=== PATIENT | male | born 1950 | race Caucasian/White ===

== ENCOUNTER 2021-06-28 06:20 | Day surgery (SDC) | payer MEDICARE, OTHER ==
[~2021-06-28] VITALS: Ht 172.7 cm; Wt 80.7 kg
[~2021-06-28 06:20] MED LIST: CANDICIDAL CAP1 EACH PO; CINNAMON500 MG PO; HYDROCHLOROTHIA25 MG PO; K-TAB ER20 MEQ PO; LIPITOR10 MG PO; NORVASC10 MG PO; PEPCID40 MG PO; TOPROL XL100 MG PO; VITAMIN D325 MCG
--- NOTE | 2021-06-28 08:25 | NUR ---
06/28/21 0825 Kamilla Rangel 0820-PATIENT ARRIVED TO PACU ON 2L NC RR EVEN. PATIENT LAYING SUPINE DROWSY EYES OPEN DENIES PAIN OR NAUSEA. IVF INFUSING. ABDOMEN SOFT.
--- NOTE | 2021-06-28 10:49 | OR ---
[facility] [address], [place] [address] Signed DATE OF OPERATION: 06/28/2021 SURGEON: Darling Tello MD PREOPERATIVE DIAGNOSES: 1. Gastroesophageal reflux disease. 2. Daily alcohol use. 3. Personal history of colonic polyps back to 2010 (age 60). 4. External anal skin tags. 5. Hemorrhoids. POSTOPERATIVE DIAGNOSES: 1. Mild to moderate gastroduodenitis. 2. Small hiatal hernia (39-37 cm). 3. 4 mm polyp at 8 cm. 4. 4 mm polyp at 20 cm/rectosigmoid junction. 5. 4 mm polyp at 25 cm. 6. 7 mm polyp at hepatic flexure. 7. 4 mm polyp at 18 cm. 8. 3 mm polyp at 4 cm. 9. Minimal to moderate internal and external hemorrhoids. 10. Minimal to moderate single anal skin tag. PROCEDURES: 1. Esophagogastroduodenoscopy with CLOtest and biopsies of the pyloric bulb, antrum and GE junction. 2. Colonoscopy with hot biopsy. ESTIMATED BLOOD LOSS: None. INDICATIONS: Yandy is a 70-year-old gentleman asked to see me for a followup endoscopy. He remembers upper endoscopy with Dr. Luis E Leger back in his 40s. He said he has done very well on his Protonix. If he goes to Pepcid, it is not enough to control his symptoms. In addition, he had an initial screening colonoscopy in 2010 at age 60. We found hyperplastic polyps, serrated adenomatous polyps and tubular adenomatous polyps. He returned at age 65 in 2015 for a repeat colonoscopy. We found an external anal skin tag along with internal hemorrhoids. He also had hyperplastic polyps and tubular adenomatous polyps. He has always done well with Versed and fentanyl. He currently has Electronically Signed By: DARLING TELLO MD 06/28/21 1049 PATIENT NAME: YANDY JONES OPERATIVE REPORT DATE OF : 54 REPORT #: [id number] PHYSICIAN: DARLING TELLO MD PCP: LUIS CHOWDARY MD REPORT IS CONFIDENTIAL AND NOT TO BE RELEASED WITHOUT AUTHORIZATION [facility] [address], [place] [address] Signed no lower GI complaints other than some of the hemorrhoids. He told me his father lived to be age 96 and his mother lived to be age 87. Yandy continues to be very active and has good functional status with excellent muscle mass. He told me there is no family history of colon cancer or polyps. In the office, I gave him a pamphlet on both upper and lower endoscopy. We had reviewed those two tests together. He understands there is risk including, but not limited to gas bloating, crampy abdominal pain, bleeding, perforation requiring surgery, and missed diagnosis. He had expressed understanding and wished to proceed. PROCEDURE NOTE: Yandy was taken into our endoscopy suite and placed in the supine semi-recumbent position. He was given a total of 6 mg of Versed and 150 mcg of fentanyl to cover the case. The posterior oropharynx was anesthetized with lidocaine spray. A bite block was utilized for the upper endoscopy. The adult gastroscope was introduced and advanced under direct visualization of camera without difficulty. The duodenum was unremarkable. The pyloric channel showed some mild inflammatory changes. He also had mild diffuse erythematous changes in the stomach. We went ahead and took biopsies of the pyloric bulb and antrum for pathologic review. In addition, a biopsy came out of the antrum for CLOtest. There were no ulcerations. Upon retroflexion of scope, we really cannot appreciate any significant sized hiatal hernia. He seems to have a small hiatal hernia about 39 back to 37 cm. He has mild disruption to the Z-line. We went ahead and took a biopsy along this area. There was no Schmid's mucosa. There was no distal esophagitis. The middle and upper esophagus were unremarkable. After this, the gas was suctioned out and the gastroscope removed. Yandy tolerated the procedure quite well. Yandy was then rotated into the left lateral decubitus position. He was maintained on IV sedation with Versed and fentanyl. A digital rectal exam was performed and we could see external hemorrhoids along with the skin tag. He has good sphincter tone. His prostate is moderately large, moderately indurated, a little more full on the left than the right. After this, the adult colonoscope was introduced, advanced all around into the cecum under direct visualization of camera without difficulty. His prep was quite good despite the fact that he had breakfast and ate a turkey sandwich yesterday. We could easily see the appendiceal orifice and ileocecal valve. The scope was then slowly withdrawn. The above-mentioned polyps were removed with the help of hot biopsy forceps. He has no diverticula. Once in the rectum, the scope was retroflexed and he does have minimal to moderate internal hemorrhoid columns. After this, the gas was suctioned out and the colonoscope removed. Yandy tolerated the procedure quite well. RECOMMENDATIONS: I will see Yandy back in my office in 7 to 14 days to review his results. I suspect he will stay on the 5-year plan. Electronically Signed By: DARLING TELLO MD 06/28/21 1049 PATIENT NAME: YANDY JONES OPERATIVE REPORT DATE OF : 54 REPORT #: [id number] PHYSICIAN: DARLING TELLO MD PCP: LUIS CHOWDARY MD REPORT IS CONFIDENTIAL AND NOT TO BE RELEASED WITHOUT AUTHORIZATION [address] [place] [place] [address] Signed Darling Tello MD [facility]/MODL /[id number] cc: MD Darling Regan MD Copies: LUIS CHOWDARY MD, ANDREW L MD ~ Electronically Signed By: DARLING TELLO MD 06/28/21 1049 PATIENT NAME: YANDY JONES OPERATIVE REPORT DATE OF : 54 REPORT #: [id number] PHYSICIAN: DARLING TELLO MD PCP: LUIS CHOWDARY MD REPORT IS CONFIDENTIAL AND NOT TO BE RELEASED WITHOUT AUTHORIZATION
--- NOTE | 2021-06-29 12:42 | PATH ---
[facility] [address], [place] [address] Signed SPECIMEN(S): A PYLORIC BULB BIOPSY SPECIMEN(S): B ANTRUM/PYLORUS BIOPSY SPECIMEN(S): C GE JUNCTION BIOPSY SPECIMEN(S): D RECTAL POLYP AT 8 CM SPECIMEN(S): E POLYP AT 20 CM SPECIMEN(S): F SIGMOID POLYP AT 25 CM SPECIMEN(S): G HEPATIC FLEXURE POLYP SPECIMEN(S): H RECTAL POLYP AT 18 CM SPECIMEN(S): I POLYP AT 4 CM SPECIMEN SOURCE: A. PYLORIC BULB BIOPSY B. ANTRUM/PYLORUS BIOPSY C. GE JUNCTION BIOPSY D. RECTAL POLYP AT 8 CM E. POLYP AT 20 CM F. SIGMOID POLYP AT 25 CM G. HEPATIC FLEXURE POLYP H. RECTAL POLYP AT 18 CM I. POLYP AT 4 CM CLINICAL HISTORY: GERD, personal history of colon polyps, hemorrhoids, anal skin tags. Postop Dx: Gastritis, small hiatal hernia, colorectal polyps, internal/external hemorrhoids, anal skin tag. MICROSCOPIC DESCRIPTION: Histologic sections of all submitted blocks are examined by light microscopy. These findings, together with the gross examination, support the pathologic diagnosis. FINAL PATHOLOGIC DIAGNOSIS: A. Pyloric bulb, biopsy: - Small bowel mucosa with no significant pathologic changes. B. Stomach, antrum/pylorus, biopsy: - Gastric antral mucosa with no significant pathologic changes. - Negative for Helicobacter pylori with HE stains. C. Gastroesophageal junction, biopsy: - Esophageal squamous mucosa with no significant pathologic changes. D. Rectum, 8 cm, polypectomy: - Colonic mucosa with no significant pathologic changes. E. Colon, 20 cm, polypectomy: PATIENT NAME: YANDY JONES PATHOLOGY DATE OF : 54 REPORT #: [id number] PHYSICIAN: MONIKA PATHOLOGY PCP: LUIS CHOWDARY MD REPORT IS CONFIDENTIAL AND NOT TO BE RELEASED WITHOUT AUTHORIZATION [facility] [address], [place] [address] Signed - Hyperplastic polyp. F. Sigmoid, 25 cm, polypectomy: - Colonic mucosa with no significant pathologic changes. G. Colon, hepatic flexure, polypectomy: - Tubular adenoma. H. Rectum, 18 cm, polypectomy: - Hyperplastic polyp. I. Colon, 4 cm, polypectomy: - Hyperplastic polyp. BRP:mfr:C2NR GROSS DESCRIPTION: Nine specimens are received in nine containers, labeled "MR." A. The specimen, labeled "MR, 1," and designated on the requisition "pyloric bulb," is received in formalin and consists of one ayala soft tissue fragment that measures 0.3 cm in greatest dimension. The specimen is entirely submitted in cassette (A1). B. The specimen, labeled "MR, 2," and designated on the requisition "antrum/pylorus," is received in formalin and consists of one ayala soft tissue fragment that measures 0.5 cm in greatest dimension. The specimen is entirely submitted in cassette (B1). C. The specimen, labeled "MR, 3," and designated on the requisition "GE junction," is received in formalin and consists of one ayala soft tissue fragment that measures 0.3 cm in greatest dimension. The specimen is entirely submitted in cassette (C1). D. The specimen, labeled "MR, 4," and designated on the requisition "rectal polyp at 8 cm," is received in formalin and consists of two ayala soft tissue fragments that measure 0.3 cm in greatest dimension. The specimen is entirely submitted in cassette (D1). E. The specimen, labeled "MR, 5," and designated on the requisition "polyp at 20 cm," is received in formalin and consists of one ayala soft tissue fragment that measures 0.3 cm in greatest dimension. The specimen is entirely submitted in cassette (E1). F. The specimen, labeled "MR, 6," and designated on the requisition "sigmoid polyp at 25 cm," is received in formalin and consists of one ayala soft tissue fragment that measures 0.3 cm in greatest dimension. The specimen is entirely submitted in cassette (F1). G. The specimen, labeled "MR, 7," and designated on the requisition "hepatic flexure," is received in formalin and consists of three ayala soft tissue fragments that measure 0.3 cm in greatest PATIENT NAME: YANDY JONES PATHOLOGY DATE OF : 54 REPORT #: [id number] PHYSICIAN: MONIKA PATHOLOGY PCP: LUIS CHOWDARY MD REPORT IS CONFIDENTIAL AND NOT TO BE RELEASED WITHOUT AUTHORIZATION [facility] [address] [place] [id number] Signed dimension. The specimen is entirely submitted in cassette (G1). H. The specimen, labeled "MR, 8," and designated on the requisition "rectal polyp at 18 cm," is received in formalin and consists of one ayala soft tissue fragment that measures 0.3 cm in greatest dimension. The specimen is entirely submitted in cassette (H1). I. The specimen, labeled "MR, 9," and designated on the requisition "polyp at 4 cm," is received in formalin and consists of one ayala soft tissue fragment that measures 0.3 cm in greatest dimension. The specimen is entirely submitted in cassette (I1). AT (under the direct supervision of a pathologist) The Gross Description was prepared using a voice recognition system. The report was reviewed for accuracy; however, sound-alike word errors, addition and/or deletions may occur. If there is any question about this report, please contact Client Services. PERFORMING LABORATORY: The technical component was [place] [address] ([employer]: Allegra Melgoza MD; CLIA# [id number]). Professional interpretation was performed [place] [address] (CLIA# [id number]). Diagnostician: Parag Raman MD Pathologist Electronically Signed 06/29/2021 Copies: ~ PATIENT NAME: YANDY JONES PATHOLOGY DATE OF : 54 REPORT #: [id number] PHYSICIAN: MONIKA GUAJARDO PCP: LUIS CHOWDARY MD REPORT IS CONFIDENTIAL AND NOT TO BE RELEASED WITHOUT AUTHORIZATION
== END 2021-06-28 09:05 | disposition home or self-care (01) ==
LOC: DS 06:20
PROVIDERS: ATTEND Colon & Rectal Surgery
PROC: 0DBN8ZX Excision of Sigmoid Colon, Via Natural or Artificial Opening Endoscopic, Diagnostic (ICD-10-PCS; 2021-06-28)
PROC: 0DBL8ZX Excision of Transverse Colon, Via Natural or Artificial Opening Endoscopic, Diagnostic (ICD-10-PCS; 2021-06-28)
PROC: 0DB58ZX Excision of Esophagus, Via Natural or Artificial Opening Endoscopic, Diagnostic (ICD-10-PCS; principal; 2021-06-28 07:30)
PROC: 0DB78ZX Excision of Stomach, Pylorus, Via Natural or Artificial Opening Endoscopic, Diagnostic (ICD-10-PCS; 2021-06-28 07:30)
DX: K29.90 Gastroduodenitis, unspecified, without bleeding (principal); K44.9 Diaphragmatic hernia without obstruction or gangrene; D12.3 Benign neoplasm of transverse colon; K63.5 Polyp of colon; K64.0 First degree hemorrhoids; K64.4 Residual hemorrhoidal skin tags; K40.30 Unilateral inguinal hernia, with obstruction, without gangrene, not specified as recurrent; I10 Essential (primary) hypertension; Z87.891 Personal history of nicotine dependence
CPT/HCPCS: 83009; 99153; G0500; J2250; J3010; J7121